=== PATIENT | female | born 1940 | race Caucasian/White ===

== ENCOUNTER 2016-05-26 07:13 | Emergency (ER) | payer OTHER, MEDICARE ==
[~2016-05-26] VITALS: Ht 157.5 cm; Wt 70.9 kg
[~2016-05-26 07:13] MED LIST: ADVAIR 100/501 DISK IH; ADVAIR 500/501 DISK IH; ASPIRIN EC325 MG PO; ASPIRIN325 MG PO; B-121000 MC2 PO; CALTRATE-600 W1 EAC1 PO; CENTRUM TABLET1 EACH PO; DAILY VALUE1 EACH PO; FERROUS GLUCON324 MG PO; FLEXERIL10 MG PO; FUROSEMIDE20 MG PO; HYDROCODON-ACE1 EAC7 PO; IRON325 M1 PO; IRON325 MG PO; LASIX20 MG PO; LEVOTHYROXINE88 MCG PO; LEXAPRO10 MG PO; LEXAPRO20 MG PO; MULTICHEW CHEW1 EACH PO; NORCO 5/3251 TABLET PO; PERCOCET 5/31 TABLET PO; PRILOSEC40 MG PO; PROAIR HFA8.5 GM IH; SENNA PLUS TAB1 EACH PO; SENNA-TIME S T1 EACH PO; TENORMIN25 MG PO; VENTOLIN HFA18 GM IH; VITAMIN B 12 PO; VITAMIN D-32000 UNI2 PO; VITAMIN D250000 UNIT PO
[2016-05-26] MEDS ORDERED: NAPROSYN500 MG PO (09:38)
[2016-05-26 10:13] VITALS: BP 151/84
== END 2016-05-26 10:14 | disposition home or self-care (01) ==
LOC: EME 07:13
PROC: 2W3DX1Z Immobilization of Left Lower Arm using Splint (ICD-10-PCS; principal; 2016-05-26)
DX: S62.112A Displaced fracture of triquetrum [cuneiform] bone, left wrist, initial encounter for closed fracture (principal); M54.2 Cervicalgia; M54.5 Low back pain; S00.83XA Contusion of other part of head, initial encounter; W10.8XXA Fall (on) (from) other stairs and steps, initial encounter; E11.9 Type 2 diabetes mellitus without complications; Z87.442 Personal history of urinary calculi; Z98.84 Bariatric surgery status; Z85.528 Personal history of other malignant neoplasm of kidney; Z86.73 Personal history of transient ischemic attack (TIA), and cerebral infarction without residual deficits; Z79.82 Long term (current) use of aspirin
CPT/HCPCS: 70450; 72125; 72131; 73110; 99281; 99284

== ENCOUNTER 2016-09-03 11:51 | Emergency (ER) | payer OTHER, MEDICARE ==
[~2016-09-03] VITALS: Ht 157.5 cm; Wt 68.1 kg
[~2016-09-03 11:51] MED LIST changes: +NAPROSYN500 MG PO
[2016-09-03 13:01] LABS: EOSINOPHIL (%) 0.5 % (0-5); IMMATURE GRANULOCYTE (%) 0.3 % (0.0-0.7); INSTRUMENT ABS NEUTROPHIL CT 7.5 K/uL; LYMPHOCYTE COUNT 0.1 K/uL (1.0-2.8); MCH 29.2 PG (29.0-34.0); MCHC 32.1 G/DL (30.0-36.0); MCV 91.1 FL (83-99); MEAN PLAT.VOLUME 10.3 uM^3 (9.5-12.4); MONOCYTE COUNT 0.2 K/uL (0-0.8); NEUTROPHIL (%) 94.3 % (45-76); NEUTROPHIL COUNT 7.5 K/uL (1.8-6.4); PLATELET COUNT 142 K/uL (156-360); RBC DIS.WIDTH-CV 13.4 % (11.8-14.6); RBC DIS.WIDTH-SD 44.5 % (39-53); RED BLOOD COUNT 4.28 M/uL (3.80-5.20)
[2016-09-03 13:10] LABS: CHLORIDE 106 mEq/L (99-109); POTASSIUM 4.3 mEq/L (3.7-5.4); SODIUM 138 mEq/L (136-147)
[2016-09-03 13:11] LABS: GLUCOSE 188 mg/dL (70-99)
[2016-09-03 13:13] LABS: ANION GAP 6 MEQ/L (2-14)
[2016-09-03 13:15] LABS: GFR ESTIMATE (CALCULATED) 52 mL/min/
[2016-09-03 13:16] LABS: UREA NITROGEN (BUN) 25 mg/dL (9-23)
[2016-09-03 13:21] LABS: TROP-I INTERPRETATION NEGATIVE; TROPONIN-I < 0.01 ng/mL (0.0-0.30)
[2016-09-03] MEDS ORDERED: ZOFRAN ODT4 MG PO (17:12)
[2016-09-03] MEDS ORDERED: LOMOTIL TABLET1 EACH PO (17:12)
[2016-09-03 17:37] LABS: ADD MIUA? YES; BILIRUBIN NEGATIVE; BLOOD SMALL; COLOR YELLOW ((YELLOW)); GLUCOSE (STRIP) NEGATIVE; KETONES NEGATIVE; LEUKOCYTES TRACE; NITRITE POSITIVE; PROTEIN (STRIP) 30; SPECIFIC GRAVITY 1.024 (1.000-1.030); UROBILINOGEN 0.2 MG/DL (0.2-1.0)
[2016-09-03 17:52] LABS: AMORPHOUS URATES CRYSTALS 3+; BACTERIA 2+ /HPF; EPITHELIAL CELLS 1+ /HPF; MUCUS 1+ /LPF
[2016-09-03 17:53] LABS: UCUL ADDED? YES
[2016-09-03 19:02] VITALS: BP 114/62
== END 2016-09-03 19:03 | disposition home or self-care (01) ==
LOC: EME 11:51
PROVIDERS: Emergency Medicine
DX: R11.10 Vomiting, unspecified (principal); R19.7 Diarrhea, unspecified; R07.9 Chest pain, unspecified; J45.909 Unspecified asthma, uncomplicated; I12.9 Hypertensive chronic kidney disease with stage 1 through stage 4 chronic kidney disease, or unspecified chronic kidney disease; N18.2 Chronic kidney disease, stage 2 (mild); K21.9 Gastro-esophageal reflux disease without esophagitis; M79.7 Fibromyalgia; Z86.73 Personal history of transient ischemic attack (TIA), and cerebral infarction without residual deficits; Z85.528 Personal history of other malignant neoplasm of kidney; Z90.5 Acquired absence of kidney; Z87.442 Personal history of urinary calculi; Z98.84 Bariatric surgery status; Z96.651 Presence of right artificial knee joint
CPT/HCPCS: 80048; 81003; 84484; 85025; 87077; 87086; 87186; 93005; 99281; 99285; J2405; J7030

== ENCOUNTER 2017-04-28 13:26 | Emergency (ER) | payer OTHER, MEDICARE ==
[~2017-04-28] VITALS: Ht 160 cm; Wt 65.8 kg
[~2017-04-28 13:26] MED LIST changes: +LOMOTIL TABLET1 EACH PO; +ZOFRAN ODT4 MG PO
[2017-04-28 14:26] LABS: HEMOGLOBIN 12.9 G/DL (11.9-15.5); MCH 29.8 PG (29.0-34.0); MCHC 33.1 G/DL (30.0-36.0); MCV 90.1 FL (83-99); PLATELET COUNT 178 K/uL (156-360); RBC DIS.WIDTH-CV 13.3 % (11.8-14.6); RBC DIS.WIDTH-SD 44.1 % (39-53); RED BLOOD COUNT 4.33 M/uL (3.80-5.20); WHITE BLOOD COUNT 5.8 K/uL (4.1-10.2)
[2017-04-28 14:33] LABS: CHLORIDE 104 mEq/L (99-109); POTASSIUM 4.1 mEq/L (3.7-5.4); SODIUM 138 mEq/L (136-147)
[2017-04-28 14:35] LABS: GLUCOSE 115 mg/dL (70-99)
[2017-04-28 14:39] LABS: GFR ESTIMATE (CALCULATED) 58 mL/min/
[2017-04-28 14:40] LABS: UREA NITROGEN (BUN) 24 mg/dL (9-23)
[2017-04-28] MEDS ORDERED: NORCO 5/3251 TABLET PO (16:12)
[2017-04-28 16:37] VITALS: BP 126/77
== END 2017-04-28 16:38 | disposition home or self-care (01) ==
LOC: EME 13:26
PROVIDERS: Emergency Medicine
DX: S02.2XXA Fracture of nasal bones, initial encounter for closed fracture (principal); S20.219A Contusion of unspecified front wall of thorax, initial encounter; S00.31XA Abrasion of nose, initial encounter; S00.511A Abrasion of lip, initial encounter; S50.312A Abrasion of left elbow, initial encounter; W17.89XA Other fall from one level to another, initial encounter; Y93.A1 Activity, exercise machines primarily for cardiorespiratory conditioning; S50.311A Abrasion of right elbow, initial encounter; S80.212A Abrasion, left knee, initial encounter; S80.211A Abrasion, right knee, initial encounter; Z96.659 Presence of unspecified artificial knee joint
CPT/HCPCS: 70450; 70486; 71260; 74177; 80048; 85027; 99281; 99285; J2270; J7040